=== PATIENT | male | born 1990 | race Caucasian/White ===

== ENCOUNTER 2018-11-07 07:44 | Emergency (ER) | payer BC, OTHER ==
[~2018-11-07] VITALS: Ht 172.7 cm; Wt 70.3 kg
[2018-11-07] MEDS ORDERED: RANITIDINE 150150 M1 PO (08:21)
--- NOTE | 2018-11-07 08:21 | EKG ---
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
[2018-11-07 08:41] VITALS: BP 141/91
== END 2018-11-07 08:34 | disposition home or self-care (01) ==
LOC: ER 07:44
DX: R07.89 Other chest pain (principal)